=== PATIENT | female | born 1955 | race Caucasian/White ===

== ENCOUNTER 2020-12-26 15:45 | Outpatient (RCR) | payer OTHER | END 2020-12-29 | disposition still patient (30) | LOC: WSPT | DX: G62.9 Polyneuropathy, unspecified (principal) ==

== ENCOUNTER 2021-01-15 12:00 | Outpatient (RCR) | payer OTHER | END 2021-03-31 | disposition home or self-care (01) | LOC: WSPT | DX: G62.9 Polyneuropathy, unspecified (principal) ==

== ENCOUNTER 2021-06-24 13:00 | Outpatient (RCR) | payer OTHER | END 2021-06-26 | disposition home or self-care (01) | LOC: WSPT | DX: G62.9 Polyneuropathy, unspecified (principal); M19.072 Primary osteoarthritis, left ankle and foot; M76.822 Posterior tibial tendinitis, left leg ==

== ENCOUNTER → 2021-08-24 | Outpatient (RCR) | payer OTHER | END | disposition home or self-care (01) | LOC: WSPT | DX: M76.822 Posterior tibial tendinitis, left leg (principal); G62.9 Polyneuropathy, unspecified; M62.50 Muscle wasting and atrophy, not elsewhere classified, unspecified site; M19.072 Primary osteoarthritis, left ankle and foot ==

== ENCOUNTER → 2021-09-24 | Outpatient (RCR) | payer OTHER | END | disposition still patient (30) | LOC: WSPT | DX: M76.822 Posterior tibial tendinitis, left leg (principal); M19.072 Primary osteoarthritis, left ankle and foot; M62.50 Muscle wasting and atrophy, not elsewhere classified, unspecified site; G62.9 Polyneuropathy, unspecified ==

== ENCOUNTER → 2021-10-15 | Outpatient (CLI) | payer OTHER | LOC: MC.RAD 08:53 | DX: Z12.31 Encounter for screening mammogram for malignant neoplasm of breast (principal) ==

== ENCOUNTER 2021-10-23 14:30 | Outpatient (RCR) | payer OTHER | END 2021-10-24 | disposition home or self-care (01) | LOC: WSPT | DX: M76.822 Posterior tibial tendinitis, left leg (principal); M76.72 Peroneal tendinitis, left leg; M19.072 Primary osteoarthritis, left ankle and foot; E11.42 Type 2 diabetes mellitus with diabetic polyneuropathy ==

== ENCOUNTER → 2021-11-24 | Outpatient (RCR) | payer OTHER | END | disposition still patient (30) | LOC: WSPT | DX: M76.822 Posterior tibial tendinitis, left leg (principal); M76.72 Peroneal tendinitis, left leg; M19.072 Primary osteoarthritis, left ankle and foot; G62.9 Polyneuropathy, unspecified; E11.9 Type 2 diabetes mellitus without complications ==

== ENCOUNTER 2021-12-11 14:15 | Outpatient (RCR) | payer OTHER | END 2021-12-24 | disposition still patient (30) | LOC: WSPT | DX: M76.822 Posterior tibial tendinitis, left leg (principal); M76.72 Peroneal tendinitis, left leg ==

== ENCOUNTER 2022-10-22 12:45 | Outpatient (RCR) | payer OTHER | END 2022-10-24 | disposition home or self-care (01) | LOC: WSPT | DX: M17.0 Bilateral primary osteoarthritis of knee (principal); E66.01 Morbid (severe) obesity due to excess calories ==

== ENCOUNTER 2023-06-24 12:45 | Outpatient (RCR) | payer OTHER | END 2023-06-26 | disposition home or self-care (01) | LOC: WSPT | DX: S72.90XD Unspecified fracture of unspecified femur, subsequent encounter for closed fracture with routine healing (principal); M17.11 Unilateral primary osteoarthritis, right knee; Z96.652 Presence of left artificial knee joint; X58.XXXD Exposure to other specified factors, subsequent encounter ==

== ENCOUNTER → 2023-07-27 | Outpatient (RCR) | payer OTHER | END | disposition home or self-care (01) | LOC: WSPT | DX: M17.11 Unilateral primary osteoarthritis, right knee (principal); S72.90XD Unspecified fracture of unspecified femur, subsequent encounter for closed fracture with routine healing; Z96.652 Presence of left artificial knee joint; X58.XXXD Exposure to other specified factors, subsequent encounter ==

== ENCOUNTER 2023-09-22 11:15 | Outpatient (RCR) | payer OTHER | END 2023-09-25 | disposition home or self-care (01) | LOC: WSPT | DX: M17.12 Unilateral primary osteoarthritis, left knee (principal); S72.90XD Unspecified fracture of unspecified femur, subsequent encounter for closed fracture with routine healing; R29.3 Abnormal posture; Z96.652 Presence of left artificial knee joint; X58.XXXD Exposure to other specified factors, subsequent encounter ==

== ENCOUNTER → 2023-10-20 | Outpatient (CLI) | payer OTHER | LOC: MC.RAD 15:23 | DX: Z12.31 Encounter for screening mammogram for malignant neoplasm of breast (principal) ==

== ENCOUNTER → 2024-01-25 | Outpatient (RCR) | payer OTHER ==
[~2024-01-25] MED LIST: BUSPAR10 MG PO; ELIQUIS 5MG PO; FERRO-TIME325 MG PO; FLEXERIL 1010 MG/TAB PO; HUMULIN 70/3100 U/M1 SQ; LASIX 80MG TABL80 MG PO; LIPITOR 10MG10 MG PO; NORVASC 10MG10 MG PO; PLAQUENIL 200M200 MG PO; PROTONIX 40MG T40 MG PO; RT ADVAIR 228 DISKUS IH; SYNTHROID0.3 MG PO; ULTRAM 50MG TAB50 MG PO; ZEBETA 5MG5 MG PO; [UNRECOGNIZED DRUG - OTHER]
== END | disposition home or self-care (01) ==
LOC: WSPT
DX: R53.81 Other malaise (principal); R53.1 Weakness

== ENCOUNTER 2024-02-24 12:45 | Outpatient (RCR) | payer OTHER | END 2024-02-25 | disposition home or self-care (01) | LOC: WSPT | DX: R53.81 Other malaise (principal) ==

== ENCOUNTER → 2024-03-26 | Outpatient (RCR) | payer OTHER | END | disposition home or self-care (01) | LOC: WSPT | DX: R53.81 Other malaise (principal); R53.1 Weakness ==